=== PATIENT | female | born 1975 | race Caucasian/White ===

== ENCOUNTER 2017-09-01 18:11 | Emergency (ER) | payer SELFPAY ==
[~2017-09-01] VITALS: Ht 175.3 cm; Wt 57.6 kg
[2017-09-01 18:38] VITALS: BP 140/64; PULSE 78; RESP 16; TEMP 97.5; O2SAT 98
[2017-09-01 20:23] VITALS: BP 155/68; PULSE 61; RESP 12; O2SAT 98
[2017-09-01] MEDS ORDERED: SODIUM CHLOR 0.9% 1000 ML INJ 1,000 ML IV ONE (20:45)
[2017-09-01] MEDS ORDERED: ONDANSETRON HCL 4 MG/2 ML VIAL IV PUSH ONE (20:45)
[2017-09-01] MEDS ORDERED: KETOROLAC TROMETHAMINE 30 MG/ML (IVP) VIAL IV PUSH ONE (20:45)
[2017-09-01 22:05] VITALS: BP 148/70; PULSE 64; RESP 16; O2SAT 98
[2017-09-01] MEDS ORDERED: ZOFR4TAB3 SL (22:08)
--- NOTE | 2017-09-01 22:09 | PD ---
HPI Chief Complaint: Headache Time Seen by Provider: 20:40 Travel History International Travel<30 days: No Contact w/Intl Traveler<30days: No Traveled to known affect area: No History of Present Illness HPI 41-year-old female with history of migraine presents to the emergency department for 2 days of typical migraine symptoms. Headache light sensitivity with nausea. Patient has had poor oral intake. Patient states over-the- counter medications have not been useful. Patient states she and frequently comes to the hospital to receive medication injections for management of her migraine. Patient's last migraine was in April which time she was seen in [place] where she lived at the time. Patient states most of her cares and managed through her physician in [place] but 1 year ago she moved from [place] to [place] and more recently in the past 2 months has moved to [place]. Patient states she has not established with a primary care provider yet as she just got a job and does not yet have insurance. Patient rates pain as severe but typical. Headache is not sudden onset thunderclap or worst ever. Patient has no neck pain and has had no recent febrile or respiratory illness. Patient denies other concerns or complaints. 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) Migraines: Yes Tetanus Vaccination: < 5 Years Influenza Vaccination: No ?: Not Past Surgical History Appendectomy: Yes Hysterectomy: Yes Social History Alcohol Use: No Tobacco Use: No Substance Use: No Allergies-Medications (Allergen,Severity, Reaction): Coded Allergies: No Known Allergies (Verified Allergy, Unknown, 09/01/17) Reported Meds & Prescriptions Reported Meds & Active Scripts Active Zofran Odt (Ondansetron Odt) 4 Mg Tab 4 Mg SL Q6HR PRN Review of Systems Except as stated in HPI: all other systems reviewed are Neg General / Constitutional: No: Fever, Chills Eyes: Positive: Photophobia, No: Diploplia, Blurred Vision HENT: Positive: Headaches, No: Neck Stiffness, Neck Pain Cardiovascular: No: Chest Pain or Discomfort Respiratory: No: Shortness of Breath Gastrointestinal: Positive: Nausea, No: Abdominal Pain Genitourinary: No: Flank Pain Musculoskeletal: No: Myalgias, Arthralgias Skin: No Rash, No Hives Neurologic: No: Weakness Psychiatric: No: Anxiety Hematologic/Lymphatic: No: Easy Bruising Physical Exam Narrative GENERAL: Well-developed well-nourished female in no acute distress no respiratory distress appears mildly ill. SKIN: Warm and dry. HEAD: Atraumatic. Normocephalic. EYES: Pupils equal and round. No scleral icterus. No injection or drainage. Funduscopic exam no papilledema. ENT: No nasal bleeding or discharge. Mucous membranes pink and moist. Airway is patent. Supple no meningismus no nuchal rigidity. NECK: Trachea midline. No JVD. CARDIOVASCULAR: Regular rate and rhythm. RESPIRATORY: No accessory muscle use. Clear to auscultation. Breath sounds equal bilaterally. GASTROINTESTINAL: Abdomen soft, non-tender, nondistended. Hepatic and splenic margins not palpable. MUSCULOSKELETAL: Extremities without clubbing, cyanosis, or edema. No obvious deformities. NEUROLOGICAL: Awake and alert. No obvious cranial nerve deficits. Motor grossly within normal limits. Five out of 5 muscle strength in the arms and legs. Normal speech. PSYCHIATRIC: Appropriate mood and affect; insight and judgment normal. Data Data Last Documented VS Vital Signs Date Time Temp Pulse Resp B/P (MAP) Pulse Ox O2 Delivery O2 Flow Rate FiO2 09/01/17 22:14 66 18 98 09/01/17 22:05 Room Air 09/01/17 18:38 97.5 Orders Orders Sodium Chlor 0.9% 1000 Ml Inj (Ns 1000 M (09/01/17 20:45) Ketorolac Inj (Toradol Inj) (09/01/17 20:45) Ondansetron Inj (Zofran Inj) (09/01/17 20:45) Ed Discharge Order (09/01/17 22:03) [facility] Medical Decision Making Medical Screen Exam Complete: Yes Emergency Medical Condition: Yes Medical Record Reviewed: Yes Differential Diagnosis Recurrent migraine, dehydration, tension headache, ICH, sinusitis; unlikely meningitis Narrative Course IV access obtained; Patient given Toradol 30 mg IV and Zofran 4 mg IV as well as 1 L normal saline @ 10 PM and states headache is markedly improved feels well taking oral hydration well and is desirous of being discharged to home. Patient reassessed patient stable for outpatient management at this time is encouraged to follow-up with primary care provider. Diagnosis Primary Impression: Migraine Referrals: Primary Care Physician call for appointment Patient Instructions: General Instructions Additional Instructions: Increase fluid hydration Takes Zofran as prescribed as needed for nausea and/or vomiting Return to the emergency department for any concerns or change in condition [place] follow-up with primary care provider May take acetaminophen/Tylenol as needed for fever 100.4F or greater or for minor pain May take ibuprofen 600 mg as often as every 6-8 hours as needed for pain associated with inflammation or for fever 100.4F or greater Med/Other Pt SpecificInfo: Prescription(s) given Scripts Ondansetron Odt (Zofran Odt) 4 Mg Tab 4 MG SL Q6HR Y for Nausea/Vomiting, #10 TAB 0 Refills Prov: Perla Bhatti MD 09/01/17 Disposition: 01 DISCHARGE HOME Condition: Stable Perla Bhatti MD Sep 01, 2017 22:09
== END 2017-09-01 22:18 | disposition home or self-care (01) ==
LOC: PHED 18:11
DX: G43.909 Migraine, unspecified, not intractable, without status migrainosus (principal)
CPT/HCPCS: 96361; 96374; 96375; 99284; J1885; J2405; J7030